=== PATIENT | female | born 1955 | race Caucasian/White ===

== ENCOUNTER 2017-01-24 10:23 | Day surgery (SDC) | payer MEDICARE ==
--- NOTE | 2017-01-24 12:43 | Operative Note ---
Upper GI Endoscopy Procedure date: 01/24/17 Date of : 51 Procedure:Upper GI Endoscopy Esophagogastroduodenoscopy with cold biopsies and TTS balloon dilation Indications: Mrs. Macias is a 61-year-old female who is here for diagnostic upper endoscopy. She has had epigastric abdominal pain with dyspepsia. She has had regurgitation, bloating, heartburn and reflux and dysphagia. She did have a colonoscopy in November with Dr. Markie Tsai M.D. and had 5 polyps removed. She does have a history of aortic valve replacement. She also has a history of a jejunoileal bypass in 1976. The patient has had constipation with obstipation/incomplete evacuation. Performing Provider: Fan Patel MD Referring Provider: Nick Spencer M.D. Sedation: Fentanyl 200 mg IV/Versed 7 mg IV Procedure: Prior to the procedure, a history and physical exam was performed, and patients medications and allergies were reviewed. The risks and benefits of the procedure and the sedation options and risks were discussed with the patient. All questions were answered and informed consent was obtained. The patient was brought to the procedure room. Patient identification and proposed procedure were verified by the physician and the nurse. The patient was placed in a left lateral decubitus position and the scope was passed under direct vision. Throughout the procedure, the patient's blood pressure, pulse, and oxygen saturations were monitored continuously. The endoscope was introduced through the mouth, and advanced to the second part of duodenum. The upper GI endoscopy was accomplished without difficulty. The patient tolerated the procedure well. Findings: The scope was passed directly into the upper esophagus and advanced to the third portion of the duodenum. The post bulbar duodenum and duodenal bulb were normal with normal mucosa and conniventes. The scope was withdrawn through a normal duodenal bulb and pylorus into the stomach. There was bile reflux with linear erythema of the antrum and body and some pylorospasm. There was some erosive reactive gastritis in the antrum and body of the stomach. The remainder of the antrum, body and fundus of the stomach were grossly normal. Upon retroflexion there was no hiatal hernia. 2 biopsies were taken in the antrum and along the lesser curvature for histology and/or CLOtest. The scope was then withdrawn into the esophagus. There was no evidence of reflux esophagitis, Abel's or Schatzki's ring. There were strong tertiary contractions and evidence of moderate esophageal dysmotility. The entire esophagus was dilated to 60 Palestinian/ 20 mm with a TTS hydrostatic balloon with some resistance at the upper esophageal sphincter/cricopharyngeal spasm. The remainder of the esophageal mucosa was normal. Immediate complications: None EBL (ml): 0 Impression: 1. Nonerosive gastroesophageal reflux disease with mild esophageal dysmotility and cricopharyngeal spasm status post dilation to 20 mm 2. 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 I do feel that this is directly related to her obstipation/incomplete bowel evacuation. I will follow up the biopsies. We will discuss dietary measures and treatment options. at 1240
[2017-01-24 14:03] VITALS: BP 116/65
== END 2017-01-24 13:25 | disposition home or self-care (01) ==
LOC: SDC 10:23
PROVIDERS: Internal Medicine Gastroenterology
PROC: 0DB78ZX Excision of Stomach, Pylorus, Via Natural or Artificial Opening Endoscopic, Diagnostic (ICD-10-PCS; 2017-01-24)
PROC: 0D758ZZ Dilation of Esophagus, Via Natural or Artificial Opening Endoscopic (ICD-10-PCS; 2017-01-24)
PROC: 0DB68ZX Excision of Stomach, Via Natural or Artificial Opening Endoscopic, Diagnostic (ICD-10-PCS; principal; 2017-01-24 12:00)
DX: K21.9 Gastro-esophageal reflux disease without esophagitis (principal); K22.4 Dyskinesia of esophagus; R13.10 Dysphagia, unspecified
CPT/HCPCS: C1726